=== PATIENT | male | born 1965 | race Caucasian/White ===

== ENCOUNTER 2020-02-10 08:29 | Emergency (ER) | payer MEDICAID ==
[~2020-02-10] VITALS: Ht 172.7 cm; Wt 92.1 kg
[2020-02-10 08:48] VITALS: BP 142/85; Ht 172.7 cm; Wt 92.1 kg
== END 2020-02-10 10:15 | disposition home or self-care (01) ==
LOC: ED 08:29
DX: J02.9 Acute pharyngitis, unspecified (principal)